=== PATIENT | female | born 1990 ===

== ENCOUNTER 2022-05-07 06:23 | Day surgery (SDC) | payer OTHER ==
[~2022-05-07] VITALS: Ht 160 cm; Wt 59.0 kg
[~2022-05-07 06:23] MED LIST: MULTIVITA PO
[2022-05-07] MEDS ORDERED: NEURONTIN600 M1 PO (12:47)
[2022-05-07] MEDS ORDERED: PERCOCET 5-3251 EACH PO (12:47)
[2022-05-07] MEDS ORDERED: POLY119PG PO (12:48)
== END 2022-05-07 17:05 | disposition home or self-care (01) ==
LOC: CIR.AMB 06:23
PROVIDERS: ATTEND Surgery
DX: K42.0 Umbilical hernia with obstruction, without gangrene (principal); Z20.822 Contact with and (suspected) exposure to COVID-19